=== PATIENT | female | born 1955 | race Caucasian/White ===

== ENCOUNTER → 2021-04-12 | Day surgery (SDC) | payer BC ==
[~2021-04-12] MED LIST: ASPIRIN CHEWABL81 MG PO; CALCIUM500 M1 PO; CANDICIDAL CAP1 EACH PO; CENTRUM COMPLE1 EACH PO; FENOFIBRATE145 MG PO; IMMUNICARE CAP1 EACH PO; LEVOTHYROXINE75 MC1 PO; LEXAPRO TAB 1010 MG PO; LIPITOR TAB 1010 MG PO; SUPER-D3+ SOFT1 EACH PO
== END | disposition home or self-care (01) ==
LOC: OR 06:12
DX: Z12.11 Encounter for screening for malignant neoplasm of colon (principal); Z12.12 Encounter for screening for malignant neoplasm of rectum; I10 Essential (primary) hypertension; E78.5 Hyperlipidemia, unspecified; E03.9 Hypothyroidism, unspecified; E53.8 Deficiency of other specified B group vitamins; E55.9 Vitamin D deficiency, unspecified; Z20.822 Contact with and (suspected) exposure to COVID-19; K57.30 Diverticulosis of large intestine without perforation or abscess without bleeding
CPT/HCPCS: J2001; J2704